=== PATIENT | female | born 1995 | race Caucasian/White ===

== ENCOUNTER 2017-03-24 08:16 | Emergency (ER) | payer BC ==
--- NOTE | 2017-03-24 09:22 | RAD ---
HISTORY: Left CVA tenderness COMPARISONS: None VIEWS: Frontal views of the abdomen. FINDINGS: BOWEL: There is a nonobstructive bowel gas pattern. There is a large amount of stool within the colon. CALCULI: There are no abnormal calculi. BONES AND SOFT TISSUES: There are no osseous abnormalities. OTHER FINDINGS: The lung bases are clear. There is no subphrenic gas. An IUD is noted IMPRESSION: 1. NONOBSTRUCTIVE BOWEL GAS PATTERN. 2. NO APPRECIABLE NEPHROLITHIASIS. 3. LARGE AMOUNT OF STOOL WITHIN THE COLON.
[2017-03-24 09:27] LABS: Hematocrit 39 % (35-47); Mean Corpuscular HGB Conc 33 g/dl (31-36); Mean Corpuscular Hemoglobin 29 pg (27-31); Mean Corpuscular Volume 88 fL (80-97); Mean Platelet Volume 7 um3 (7.4-10.4); Red Blood Count 4.44 10^6/ul (4.0-5.4); Red Cell Distribution Width 14 % (10.5-15); White Blood Count 8.7 10^3/ul (3.5-10.8)
[2017-03-24 09:45] LABS: ALT 17 U/L (7-52); AST 28 U/L (13-39); Albumin 4.6 g/dL (3.2-5.2); Alkaline Phosphatase 72 U/L (34-104); Anion Gap 5 mmol/L (2-11); BUN/Creatinine Ratio 17.2 (8-20); Blood Urea Nitrogen 15 mg/dL (6-24); C Reactive Protein < 1.00 mg/L (< 5.00); CO2 Carbon Dioxide 30 mmol/L (22-32); Chloride 100 mmol/L (101-111); EGFR African American 106.8 (>60); Globulin 3.2 g/dL (2-4); Glucose 87 mg/dL (70-100); Lipase 40 U/L (11.0-82.0); Potassium 3.8 mmol/L (3.5-5.0); Sodium 135 mmol/L (133-145); Total Protein 7.8 g/dL (6.4-8.9)
[2017-03-24 10:19] LABS: Urine Bacteria Absent (Absent); Urine Bilirubin Negative (Negative); Urine Glucose Negative (Negative); Urine Nitrite Negative (Negative)
[2017-03-24 11:30] VITALS: BP 119/72
--- NOTE | 2017-03-25 17:31 | ED ---
Chelsea Tabor Thomas, scribed for Jamar Fernandez MD on 03/24/17 at 0849 . Abdominal Pain/Female - HPI Summary HPI Summary: The pt is a 21 y/o F presenting to the ED c/o L flank pain that began this AM. The patient was diagnosed with renal calculi via CT scan three weeks ago. She reports that the scan showed a 4mm stone and a 5mm stone in the lower pole on the left side. Her urologist in [place] decided against any treatments at this time and advised her to stay well-hydrated. The pain is described as searing. The pain is somewhat relieved by time of examination in the ED. The pt rates the pain 7/10. The pain is alleviated by nothing. 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 Pt additionally c/o nausea and hematuria (this AM). Pt denies fever. She is on the Mirena IUD and does not have menstrual cycles. - History of Current Complaint Chief Complaint: EDFlankPain Stated Complaint: LT FLANK PAIN/KIDNEY Hx Obtained From: Patient Onset/Duration: Lasting Hours - onset this AM, Still Present Timing: Constant Severity Currently: Moderate Pain Intensity: 7 Pain Scale Used: 0-10 Numeric Location: Flank - L Character: Other: - Searing Aggravating Factor(s): Nothing Alleviating Factor(s): Nothing Associated Signs and Symptoms: Positive: Nausea, Other: - Hematuria. Negative: Fever Allergies/Adverse Reactions: Allergies Allergy/AdvReac Type Severity Reaction Status Date / Time No Known Allergies Allergy Verified 03/24/17 08:22 PMH/Surg Hx/FS Hx/Imm Hx Previously Healthy: No Endocrine/Hematology History: Denies: Hx Diabetes Cardiovascular History: Denies: Hx Hypertension History: Reports: Hx Kidney Stones Musculoskeletal History: Reports: Hx of Fracture(s) - Surgical History Surgery Procedure, Year, and Place: None. Infectious Disease History: No Infectious Disease History: Denies: Traveled Outside the [place] in Last 30 Days - Family History Known Family History: Positive: Other - Kidney stones - Social History Occupation: Student Lives: Dormitory/Roommates Alcohol Use: Occasionally Hx Substance Use: No Substance Use Type: Reports: None Hx Tobacco Use: No Smoking Status (MU): Never Smoked Tobacco Review of Systems Negative: Fever Positive: Nausea Positive: flank pain - L, hematuria All Other Systems Reviewed And Are Negative: Yes Physical Exam - Summary Physical Exam Summary: VITAL SIGNS: Reviewed. GENERAL: Patient is a well-developed and nourished female who is lying comfortable in the stretcher. Patient is not in any acute respiratory distress. HEAD AND FACE: Normocephalic and atraumatic. EYES: PERRLA, EOMI x 2, No injected conjunctiva. EARS: Hearing grossly intact. Ear canals and tympanic membranes are WNL. MOUTH: Oropharynx within normal limits. NECK: Supple, trachea is midline, no adenopathy, no JVD. CHEST: Symmetric, no tenderness at palpation LUNGS: Clear to auscultation bilaterally. No wheezing or crackles. CVS: RRR, S1 and S2 present, no murmurs or gallops appreciated. ABDOMEN: She has left CVA tenderness. Soft. No signs of distention. Positive bowel sounds. No rebound no guarding, and no masses palpated. No abdominal bruit or pulsations. EXTREMITIES: FROM in all major joints, no edema, no cyanosis or clubbing. NEURO: Alert and oriented x 3. No acute neurological deficits. Speech is normal. SKIN: Dry and warm Triage Information Reviewed: Yes Vital Signs On Initial Exam: Initial Vitals Temp Pulse Resp BP Pulse Ox 97.6 F 61 20 119/70 99 03/24/17 08:19 03/24/17 08:19 03/24/17 08:19 03/24/17 08:19 03/24/17 08:19 Vital Signs Reviewed: Yes Diagnostics - Vital Signs Vital Signs Temp Pulse Resp BP Pulse Ox 03/24/17 08:19 97.6 F 61 20 119/70 99 - Laboratory Lab Results: Lab Results 03/24/17 03/24/17 03/24/17 Range/Units 09:15 09:15 09:45 WBC 8.7 (3.5-10.8) 10^3/ul RBC 4.44 (4.0-5.4) 10^6/ul Hgb 13.0 (12.0-16.0) g/dl Hct 39 (35-47) % MCV 88 (80-97) fL MCH 29 (27-31) pg MCHC 33 (31-36) g/dl RDW 14 (10.5-15) % Plt Count 263 (150-450) 10^3/ul MPV 7 L (7.4-10.4) um3 Neut % (Auto) 72.4 (38-83) % Lymph % (Auto) 17.0 L (25-47) % Glenn % (Auto) 8.6 (1-9) % Eos % (Auto) 1.5 (0-6) % Baso % (Auto) 0.5 (0-2) % Absolute Neuts (auto) 6.3 (1.5-7.7) 10^3/ul Absolute Lymphs (auto) 1.5 (1.0-4.8) 10^3/ul Absolute Monos (auto) 0.7 (0-0.8) 10^3/ul Absolute Eos (auto) 0.1 (0-0.6) 10^3/ul Absolute Basos (auto) 0 (0-0.2) 10^3/ul Absolute Nucleated RBC 0 10^3/ul Nucleated RBC % 0 Sodium 135 (133-145) mmol/L Potassium 3.8 (3.5-5.0) mmol/L Chloride 100 L (101-111) mmol/L Carbon Dioxide 30 (22-32) mmol/L Anion Gap 5 (2-11) mmol/L BUN 15 (6-24) mg/dL Creatinine 0.87 (0.51-0.95) mg/dL Est GFR ( Amer) 106.8 (>60) Est GFR (Non-Af Amer) 83.0 (>60) BUN/Creatinine Ratio 17.2 (8-20) Glucose 87 (70-100) mg/dL Calcium 10.0 (8.6-10.3) mg/dL Total Bilirubin 0.40 (0.2-1.0) mg/dL AST 28 (13-39) U/L ALT 17 (7-52) U/L Alkaline Phosphatase 72 (34-104) U/L C-Reactive Protein < 1.00 (< 5.00) mg/L Total Protein 7.8 (6.4-8.9) g/dL Albumin 4.6 (3.2-5.2) g/dL Globulin 3.2 (2-4) g/dL Albumin/Globulin Ratio 1.4 (1-3) Lipase 40 (11.0-82.0) U/L Urine Color Yellow Urine Appearance Clear Urine pH 7.0 (5-9) Ur Specific [place] 1.015 (1.010-1.030) Urine Protein Negative (Negative) Urine Ketones Negative (Negative) Urine Blood 1+ H (Negative) Urine Nitrate Negative (Negative) Urine Bilirubin Negative (Negative) Urine Urobilinogen Negative (Negative) Ur Leukocyte Esterase Negative (Negative) Urine WBC (Auto) Trace(0-5/hpf) (Absent) Urine RBC (Auto) 1+(3-5/hpf) H (Absent) Ur Squamous Epith Cells Present H (Absent) Urine Bacteria Absent (Absent) Urine Glucose Negative (Negative) Result Diagrams: 03/24/17 09:15 03/24/17 09:15 Lab Statement: Any lab studies that have been ordered have been reviewed, and results considered in the medical decision making process. - Radiology XR Abdomen Xray Interpretation: No Acute Changes - 1. NONOBSTRUCTIVE BOWEL GAS PATTERN. 2. NO APPRECIABLE NEPHROLITHIASIS. 3. LARGE AMOUNT OF STOOL WITHIN THE COLON. ED Physician has reviewed this report and agrees. Radiology Interpretation Completed By: Radiologist Re-Evaluation - Re-Evaluation First Eval Re-Evaluation Time: 11:15 Change: Improved Comment: She is feelings better and has no pain. She has a 4mm and a 5mm kidney stone diagnosed via CT in [place]. Since she is feeling better, I am not going to order another CT. Abdominal Pain Fem Course/Dx - Course Course Of Treatment: The pt is a 21 y/o F presenting to the ED c/o L flank pain that began this AM. The patient was diagnosed with renal calculi via CT scan three weeks ago. She reports that the scan showed a 4mm stone and a 5mm stone in the lower pole on the left side. Her urologist in [place] decided against any treatments at this time and advised her to stay well-hydrated. The pain is described as searing. The pain is somewhat relieved by time of examination in the ED. The pt rates the pain 7/10. The pain is alleviated by nothing. 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 Pt additionally c/o nausea and hematuria (this AM). Pt denies fever. She is on the Mirena IUD and does not have menstrual cycles. Test results are without significant abnormalitiy. UA is negative for UTI. Radiograph of the abdomen shows 1. NONOBSTRUCTIVE BOWEL GAS PATTERN. 2. NO APPRECIABLE NEPHROLITHIASIS. 3. LARGE AMOUNT OF STOOL WITHIN THE COLON. The patient reports that she had a CT two weeks ago in [place] which showed two kidney stones in the left ureter 4mm and 5mm. However, when she got to the ED, the patients symptoms are resolved. The patient was hydrated and given Toradol for the pain, after which her symptoms resolved. At this point, the patient is asymptomatic. She was observed for approximately three and a half hours in the ED and her symptoms did not return. Therefore, at this point she will be discharged home with follow up by primary care. She was asked to return if she develops fever, chills, nausea, vomiting, or increase in pain. She understands and agrees. - Diagnoses Differential Diagnosis: Positive: Constipation, Ovarian Cyst, Renal Colic, Urinary Tract Infection Provider Diagnoses: Kidney stones Discharge - Discharge Plan Condition: Stable Disposition: HOME Prescriptions: HYDROcodone/ACETAMIN 5-325 MG* [[place] 5-325 TAB*] 1 tab PO Q6H PRN #10 tab MDD 4 PRN Reason: Pain Ibuprofen TAB* [Motrin TAB* 600 MG] 600 mg PO Q8H PRN #200 tab PRN Reason: Pain Patient Education Materials: Kidney Stones (ED) Referrals: [facility] - Johnny ORDONEZ [Primary Care Provider] - 3 Days Additional Instructions: Follow up at [facility] in three days. Return to the emergency department for any new or worsening symptoms. The documentation as recorded by the Chelsea loving Thomas accurately reflects the service I personally performed and the decisions made by , Jamar Fernandez MD.
== END 2017-03-24 11:29 | disposition home or self-care (01) ==
LOC: ED 08:16
DX: N20.0 Calculus of kidney (principal)
CPT/HCPCS: 36415; 74000; 80053; 81003; 81015; 83690; 85025; 86140; 99282